=== PATIENT | female | born 1965 | race African-American/Black ===

== ENCOUNTER 2018-01-20 19:16 | Emergency (ER) | payer OTHER ==
[2018-01-20 19:29] VITALS: BP 139/73; PULSE 65; TEMP 98.5; BMI 27.4
[2018-01-20] MEDS ORDERED: ACETAMINOPHEN 500 MG TABLET (FP) ONE (19:50)
[2018-01-20] MEDS ORDERED: ACETAMINOPHEN 500 MG TABLET (FP) PO ONE (19:50)
--- NOTE | 2018-01-20 19:54 | PDOC ---
History of Present Illness - General Chief Complaint: Pain Stated Complaint: FALL INJURY - History of Present Illness Initial Comments: 52-year-old female with a past medical history significant for coronary artery disease on aspirin no other meds presents for evaluation after fall. She complains of neck pain left knee and left ankle pain. She did not hit her head she does have a mild headache coming from her neck which is developing spasm as per the patient. No visual changes nausea or vomiting. 01/20/18 19:51 01/20/18 19:53 Past History - Past Medical History Allergies/Adverse Reactions: Allergies Allergy/AdvReac Type Severity Reaction Status Date / Time No Known Allergies Allergy Verified 01/20/18 19:25 Home Medications: Ambulatory Orders Cyclobenzaprine HCl [Flexeril 10 mg] 10 mg PO HS PRN #10 tablet 01/20/18 COPD: No Other medical history: Pt denies - Suicide/Smoking/Psychosocial Hx Smoking History: Never smoked Have you smoked in the past 12 months: No Information on smoking cessation initiated: No Hx Alcohol Use: No Drug/Substance Use Hx: No Substance Use Type: None Review of Systems - Review of Systems Musculoskeletal: Yes: See HPI, Joint Pain, Neck Pain Integumentary: No: See HPI All Other Systems: Reviewed and Negative *Physical Exam - Vital Signs Last Vital Signs Temp Pulse Resp BP Pulse Ox 98.5 F 65 18 139/73 99 01/20/18 19:26 01/20/18 19:26 01/20/18 19:26 01/20/18 19:26 01/20/18 19:26 - Physical Exam Comments: Left ankle skin color and temperature are normal she has swelling about the lateral aspect of the left ankle tenderness about the ATFL and distal fibula. No tenderness about the proximal fibula, along its distal course, fifth metatarsal, navicular, and medial malleolus. She is unable to tolerate stability testing. Left Knee range of motion 0-90 with mild discomfort she has medial lateral joint line tenderness no instability Cervical spine skin color and temperature are normal she has no midline tenderness mild paracervical musculature spasm and tenderness no gross sensorimotor deficits 5 out of 5 strength in bilateral upper extremities. 01/20/18 19:52 ED Treatment Course - RADIOLOGY Radiology Studies Ordered: Category Date Time Status ANKLE-LEFT [RAD] Stat Radiology 01/20/18 19:50 Ordered KNEE 3 POS-LEFT [RAD] Stat Radiology 01/20/18 19:51 Ordered SPINE-CERVICAL [RAD] Stat Radiology 01/20/18 19:51 Ordered Medical Decision Making - Medical Decision Making Is a cervical spine show straightening of the cervical lordosis in moderate to severe arthritic changes. No acute fractures identified. Left ankle in the x-rays are negative no acute fracture trauma or destructive process is identified. 01/20/18 20:23 *DC/Admit/Observation/Transfer Diagnosis at time of Disposition: Ankle sprain, Knee contusion, Cervical strain - Discharge Dispostion Disposition: HOME Condition at time of disposition: Stable Decision to Admit order: No - Referrals Referrals: Feroz Messina MD [Primary Care Provider] - Imer Renee MD [Staff Physician] - - Patient Instructions Printed Discharge Instructions: DI for Cervical Muscle Strain, DI for Contusion , Ankle Sprain, DI for Ankle Sprain Additional Instructions: Have an ankle sprain. You may weight-bear as tolerated with use of crutches and an Aircast. Follow-up with orthopedics for further evaluation and treatment options. He contusion which should resolve on its own. But if it continues to body should follow-up with orthopedics for further evaluation and treatment options. Nuchal strain which will probably You for a few more days. If not a week or so. Return to the emergency room should her symptoms worsen or go unresolved. Also follow-up with orthopedics for this injury as well. The muscle relaxer which should help with your spasm in your neck. It's one tablet before bedtime it will make you tired. Return to the emergency room should symptoms worsen or go unresolved. Follow-up with orthopedics in 1-2 days for further evaluation and treatment options. - Post Discharge Activity
== END 2018-01-20 20:55 | disposition home or self-care (01) ==
LOC: JERFT 19:16
PROC: 2W3RX1Z Immobilization of Left Lower Leg using Splint (ICD-10-PCS; principal; 2018-01-20)
DX: S16.1XXA Strain of muscle, fascia and tendon at neck level, initial encounter (principal); S93.402A Sprain of unspecified ligament of left ankle, initial encounter; S80.02XA Contusion of left knee, initial encounter; W01.0XXA Fall on same level from slipping, tripping and stumbling without subsequent striking against object, initial encounter; Z91.81 History of falling; Y93.89 Activity, other specified; Y92.512 Supermarket, store or market as the place of occurrence of the external cause; Y99.8 Other external cause status; I25.10 Atherosclerotic heart disease of native coronary artery without angina pectoris; Z79.82 Long term (current) use of aspirin
CPT/HCPCS: 29515; 72050-TC-FY; 73562-TC-LT-FY; 73610-TC-LT-FY; 99281-25

== ENCOUNTER 2018-02-06 07:35 | Day surgery (SDC) | payer OTHER ==
[2018-02-05 15:05] VITALS: BMI 27.4
[2018-02-06 08:22] VITALS: TEMP 97.9
[2018-02-06 10:48] VITALS: PULSE 68
[2018-02-06 11:23] VITALS: BP 117/57
== END 2018-02-06 11:23 | disposition home or self-care (01) ==
LOC: JASU-ENDO 07:35
PROVIDERS: ATTEND Internal Medicine Gastroenterology
PROC: 0DJD8ZZ Inspection of Lower Intestinal Tract, Via Natural or Artificial Opening Endoscopic (ICD-10-PCS; principal; 2018-02-06 09:00)
DX: Z12.11 Encounter for screening for malignant neoplasm of colon (principal); K57.30 Diverticulosis of large intestine without perforation or abscess without bleeding; K64.4 Residual hemorrhoidal skin tags
CPT/HCPCS: 84703

== ENCOUNTER 2023-10-30 03:54 | Day surgery (SDC) | payer OTHER ==
[2023-10-25 13:14] VITALS: BMI 27.4
[2023-10-30] MEDS ORDERED: ACETAMINOPHEN 325 MG TABLET (FP) PO PRN (06:52)
[2023-10-30] MEDS ORDERED: IBUPROFEN 400 MG TABLET (FP) PO PRN (06:52)
[2023-10-30] MEDS ORDERED: oxyCODONE HCL 5 MG TABLET PO PRN (09:51)
[2023-10-30] MEDS ORDERED: ONDANSETRON 4 MG/2 ML VIAL IVPUSH PRN (09:51)
[2023-10-30] MEDS ORDERED: LACTATED RINGERS SOLUTION 1,000 ML IV SCH (10:00)
[2023-10-30] MEDS ORDERED: PROPOFOL 40 ML ONE (10:18)
[2023-10-30] MEDS ORDERED: ONDANSETRON 4 MG/2 ML VIAL ONE (10:19)
[2023-10-30] MEDS ORDERED: LIDOCAINE HCL/PF 2% SDV 5ML VIAL ONE (10:19)
[2023-10-30] MEDS ORDERED: KETOROLAC TROMETHAMINE 30 MG/1 ML VIAL ONE (10:19)
[2023-10-30] MEDS ORDERED: DEXAMETHASONE SOD PHOSPHATE 4 MG/1 ML VIAL ONE (10:22)
[2023-10-30] MEDS ORDERED: ACETAMINOPHEN INJECTION 100 ML IVPB ONE (10:24)
[2023-10-30] MEDS ORDERED: ceFAZolin SODIUM 1 GM VIAL ONE (10:24)
[2023-10-30] MEDS ORDERED: SODIUM CHLORIDE 0.9% P/F 10 ML VIAL IJ ONE (10:24)
[2023-10-30] MEDS ORDERED: FENTANYL CITRATE/PF 50 MCG/ML VIAL ONE (10:26)
[2023-10-30] MEDS ORDERED: MIDAZOLAM HCL 2 MG/2 ML SINGLE DOSE VIAL ONE (10:26)
[2023-10-30] MEDS: ceFAZolin SODIUM 1 GM VIAL IVPB ONE (11:15)
[2023-10-30 16:11] VITALS: BP 117/68; PULSE 70; RESP 18; TEMP 97.3
== END 2023-10-30 17:45 | disposition home or self-care (01) ==
LOC: JASU-SURG 03:54
PROVIDERS: ATTEND Obstetrics & Gynecology
PROC: 0UBC8ZX Excision of Cervix, Via Natural or Artificial Opening Endoscopic, Diagnostic (ICD-10-PCS; 2023-10-30)
PROC: 0UB98ZZ Excision of Uterus, Via Natural or Artificial Opening Endoscopic (ICD-10-PCS; principal; 2023-10-30 09:30)
DX: D25.0 Submucous leiomyoma of uterus (principal); N84.1 Polyp of cervix uteri
CPT/HCPCS: 88305-TC; 94760; J0131